=== PATIENT | male | born 1995 | race Caucasian/White ===

== ENCOUNTER 2020-09-01 00:59 | Emergency (ER) | payer MEDICAID ==
[~2020-09-01] VITALS: Ht 175.3 cm; Wt 67.2 kg
[2020-09-01 01:01] VITALS: BP 109/83
[2020-09-01] MEDS ORDERED: pantoprazole 40 MG vial IV ONE (01:55)
[2020-09-01] MEDS ORDERED: ondansetron/PF 4mg/2ml inj IV ONE (01:55)
[2020-09-01] MEDS ORDERED: normal saline 1000ML IV soln IVB ONE (01:55)
== END 2020-09-01 03:16 | disposition home or self-care (01) ==
LOC: ER 01:00
DX: F10.129 Alcohol abuse with intoxication, unspecified (principal); R11.10 Vomiting, unspecified; Z72.89 Other problems related to lifestyle; Y90.9 Presence of alcohol in blood, level not specified
CPT/HCPCS: 93005; 96374; 96375; 99284; C9113; J2405; J7030

== ENCOUNTER 2021-06-07 09:06 | Emergency (ER) | payer MEDICAID ==
[~2021-06-07] VITALS: Ht 170.2 cm; Wt 59.1 kg
[2021-06-07 09:15] VITALS: BP 143/85
== END 2021-06-07 09:32 ==
LOC: ER 09:06
DX: R45.851 Suicidal ideations (principal); Z02.89 Encounter for other administrative examinations
CPT/HCPCS: 99283; 99285

== ENCOUNTER 2021-08-01 22:37 | Emergency (ER) | payer MEDICAID ==
[~2021-08-01] VITALS: Ht 165.1 cm; Wt 63.6 kg
[2021-08-01 22:45] VITALS: BP 111/58
== END 2021-08-02 01:42 | disposition left against medical advice (07) ==
LOC: ER 22:38
DX: L02.512 Cutaneous abscess of left hand (principal); Z53.21 Procedure and treatment not carried out due to patient leaving prior to being seen by health care provider

== ENCOUNTER 2021-09-20 07:57 | Emergency (ER) | payer MEDICAID, OTHER ==
[~2021-09-20] VITALS: Ht 165.1 cm; Wt 59.1 kg
[2021-09-20] MEDS ORDERED: normal saline 1000ml 1,000 ML IV ONE (08:00)
--- NOTE | 2021-09-20 08:56 | NUR ---
Spoke with Dr. Lewis regarding patients continued low blood pressure at 82/[address] Lewis stated that the retirement should hold the blood pressure medication at this time. Patient is asymptomatic with blood pressure being low, he also stated that patient will have rebound HTN if we given additional fluids. Primary RN aware.
[2021-09-20 08:59] VITALS: BP 82/47
[2021-09-20] MEDS ORDERED: OLAN2.5T3 PO (09:06)
[2021-09-20] MEDS ORDERED: CLON0.2T PO (09:06)
[2021-09-20] MEDS ORDERED: CARV6.252 PO (09:06)
[2021-09-20] MEDS ORDERED: SACU1TAB PO (09:06)
== END 2021-09-20 09:00 ==
LOC: ER 07:58 → EEVIPCON 07:58 → ER 09:00
DX: R42 Dizziness and giddiness (principal); I95.9 Hypotension, unspecified; Z72.89 Other problems related to lifestyle; Z88.1 Allergy status to other antibiotic agents; Z88.8 Allergy status to other drugs, medicaments and biological substances; Z79.899 Other long term (current) drug therapy
CPT/HCPCS: 96360; 99283; J7030